=== PATIENT | female | born 1955 | race American Indian/Alaskan Native ===

== ENCOUNTER 2017-06-18 17:49 | Emergency (ER) | payer MEDICARE, MEDICAID ==
[2017-06-18 17:49] VITALS: BMI 31.2
[2017-06-18] MEDS ORDERED: Iohexol 240 (50 ml) PO STA (18:38)
[2017-06-18 18:43] VITALS: BP 143/85; PULSE 82; RESP 18; TEMP 99; O2SAT 98
[2017-06-18] MEDS ORDERED: Piperacill/Tazo 3.375gm in Dex 3.375 GM/50 ML BAG IVPB STA (19:23)
--- NOTE | 2017-06-18 19:37 | ED PDOC ---
HPI: General Adult Time Seen by Provider: 06/18/17 18:37 Chief Complaint (Nursing): Fever Chief Complaint (Provider): FEVER History Per: Patient (61 Y/O FEMALE H/O ESRD/ANEMIA RECENT AMA FROM [facility] YESTERDAY AFTER DIAGNOSIS OF MRSA AND VANCOMYCIN 2 DOSES. PATIENT NOTES SHE HAS HAD DIARRHEA AND FEVER AND FEELS UNWELL. WAS ATTEMPTING TO SEE HER PMD OUTPATIENT ON TUESDAY (DR. OLIVARES) BUT DID NOT FEEL WELL ENOUGH TO WAIT TO BE SEEN. PATIENT STATES SHE HAD INDWELLING DIALYSIS CATHETER REMOVED AT THAT TIME. STATES SHE HAD DIALYSIS CATHETER PLACED EMERGENCY DURING ADMISSION AT [facility] [place]. PATIENT WAS DIAGNOSIS WITH DIVERTICULITIS WITH ABSCESS. PATIENT STATES SHE HAD PERITONEAL DIALYSIS CATHETER REMOVED AT THAT TIME. PATIENT DOES NOT WANT TO BE CONSIDERED FOR DIALYSIS. 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/ H/O BOWEL PERFORATION - Family History Family History: States: Unknown Family Hx - Immunization History Hx Tetanus Toxoid Vaccination: No - Home Medications Home Medications: Ambulatory Orders Medication Instructions Recorded Allopurinol [Zyloprim] 100 mg PO DAILY 05/31/17 Calcium Carbonate 1 tab PO BID 05/31/17 Ferrous Sulfate [Slow Release Iron] 142 mg PO DAILY 05/31/17 Hydroxychloroquine Sulfate 200 mg PO DAILY 05/31/17 Metoprolol Succinate [Toprol XL] 50 mg PO BID 05/31/17 Sodium Bicarbonate Tab 650 mg PO QID 05/31/17 Tamsulosin [Flomax] 0.4 mg PO DAILY 05/31/17 Calcitriol 0.25 mcg PO DAILY 06/03/17 Vit B Cmplx 3/Folic AC/C/Biot 1 tab PO DAILY 06/03/17 [[facility] Tablet] - Allergies Allergies/Adverse Reactions: Allergies Allergy/AdvReac Type Severity Reaction Status Date / Time No Known Allergies Allergy Verified 10/28/17 17:56 Review of Systems ROS Statement: Except As Marked, All Systems Reviewed And Found Negative Physical Exam - Reviewed Nursing Documentation Reviewed: Yes Vital Signs Reviewed: Yes - Physical Exam Appears: Positive for: Well, Non-toxic, No Acute Distress Head Exam: Positive for: ATRAUMATIC, NORMAL INSPECTION, NORMOCEPHALIC Skin: Positive for: Warm. Negative for: Normal Color (RIGHT UPPER CHEST WALL WITH SMALL AMOUND OF PRULULENT DISCHARGE NOTED AT FORMER SHUNT SITE. NO SURROUNDING ERYTHEMA) Eye Exam: Positive for: EOMI, Normal appearance, PERRL ENT: Positive for: Normal ENT Inspection Neck: Positive for: Normal, Painless ROM Cardiovascular/Chest: Positive for: Regular Rate, Rhythm Respiratory: Positive for: CNT, Normal Breath Sounds Gastrointestinal/Abdominal: Positive for: Normal Exam, Bowel Sounds, Soft, Tenderness (TENDER ABDOMEN BILATERAL LOWER) Back: Positive for: Normal Inspection Extremity: Positive for: Normal ROM Neurologic/Psych: Positive for: Alert, Oriented - ECG O2 Sat by Pulse Oximetry: 98 - Progress ED Course And Treament: BC X 2 PENDING VENOUS BG EKG: SINUS TACHYCARDIA 103 BPM; NO ECTOPY NO ACUTE CHANGES VANCOMYCIN 1 GM IV X 1 DOSE ZOSYN 3.375 MG IV X 1 DOSE D/W DR. OLIVARES [phone]. D/W DAUGHTER [phone] WHO IS APN. GILL Disposition - Clinical Impression Clinical Impression: Fever in adult - Patient ED Disposition Is Patient to be Admitted: Transfer of Care - Disposition Disposition: Transfer of Care Disposition Time: 20:17 Condition: FAIR Forms: [employer] ([place]riac) Patient Signed Over To: Wilbert Ozuna Handoff Comments: PENDING LABS/ADMISSION.
[2017-06-18 20:03] LABS: VENOUS BLOOD GAS PCO2 31 mmHg (40-60); VENOUS BLOOD PH 7.49 (7.32-7.43)
[2017-06-18] MEDS ORDERED: Iohexol 240 (50 ml) ONE (20:37)
[2017-06-18 20:40] LABS: BASO # 0.1 K/uL (0.0-0.2); BASO % 0.6 % (0.0-2.0); EOS # 0.2 K/uL (0.0-0.7); EOS % 2.1 % (0.0-4.0); HEMATOCRIT 18.9 % (34.0-47.0); LYMPH # 4.2 K/uL (1.0-4.3); LYMPH % 40.9 % (20.0-40.0); MEAN CELL VOLUME 85.8 fl (81.0-99.0); MEAN CORPUSCULAR HEMOGLOBIN 25.5 pg (27.0-31.0); MEAN CORPUSCULAR HGB CONC 29.7 g/dL (33.0-37.0); MEAN PLATELET VOLUME 8.2 fl (7.2-11.7); MONO # 1.4 K/uL (0.0-0.8); MONO % 13.8 % (0.0-10.0); NEUT # 4.3 K/uL (1.8-7.0); NEUT % 42.6 % (50.0-75.0); RED CELL DISTRIBUTION WIDTH 20.2 % (11.5-14.5); WHITE BLOOD COUNT 10.2 K/uL (4.8-10.8)
[2017-06-18 20:42] LABS: ALB/GLOB RATIO 0.6 (1.0-2.1); BILIRUBIN,TOTAL 0.7 mg/dl (0.2-1.3); CALCIUM 7.2 mg/dL (8.4-10.2); POTASSIUM 3.7 MMOL/L (3.6-5.0); TOTAL PROTEIN 7.9 G/DL (6.3-8.2)
[2017-06-18 20:54] LABS: TROPONIN I 0.03 ng/mL (0.00-0.120)
--- NOTE | 2017-06-18 21:19 | ED PDOC ---
- Laboratory Results Result Diagrams: 06/18/17 20:10 06/18/17 20:10 - ECG O2 Sat by Pulse Oximetry: 98 - Progress ED Course And Treament: 1999 Signed out to me pending labs and CT. 2044 On re-evaluation, pt. in no distress. Refusing IV and antibiotics pending her blood work. 2100 Pt. given blood results and informed of increased lipase levels, severe anemia, ESRD. Informed that she requires admission for further testing, transfusion, and antibiotics. States she wants to sign out against medical advice and she will see Dr. Zaidi on Tuesday. I offered to call her daughter and Dr. Zaidi to inform them of patient's decision to sign out against medical advice but patient refused consent and requested that I do not contact them about her decision. Disposition - Clinical Impression Clinical Impression: Fever in adult, Severe anemia, MRSA (methicillin resistant staph aureus) culture positive, Left against medical advice, Abdominal pain, Diarrhea, End stage renal disease - POA Present On Arrival: None - Disposition Referrals: Vashti Kamara [Outside] Disposition: AGAINST MEDICAL ADVICE Disposition Time: 21:00 Condition: FAIR Additional Instructions: FOLLOW UP WITH DR. ZAIDI ON TUESDAY WITHOUT FAIL RETURN TO ED IMMEDIATELY FOR ANY CONCERNS OR QUESTIONS Instructions: Abdominal Pain (ED), Against Medical Advice (ED), Anemia (ED), End Stage Kidney Disease (ED) Forms: [email or web address] (Burkinan) Against Medical Advice - AMA Patient Left Against Medical Advice: The patient declines admission to the hospital and wishes to leave the Emergency Department. This action is against my medical advice. This decision was made with informed refusal. The patient was told that admission to the hospital is necessary. Explanation of the reasons why were discussed. The risks of leaving were explained to the patient and include, but are not limited to, worsening of known or currently unknown conditions, permanent disability and from undiagnosed or untreated conditions. The patient has the capacity to make this informed decision and understands my explanation of the current medical problem and risks of leaving. The patient voluntarily accepts these risks and signed an AMA form documenting our conversation. The patient was given the opportunity to ask questions and reconsider. The patient was encouraged to return to the Emergency Department at any time for further care.
--- NOTE | 2017-06-19 10:27 | RAD ---
HISTORY: Fever COMPARISON: No prior. FINDINGS: LUNGS: The lungs are well inflated and clear. PLEURA: No significant pleural effusion identified, no pneumothorax apparent. CARDIOVASCULAR: Normal. OSSEOUS STRUCTURES: No significant abnormalities. VISUALIZED UPPER ABDOMEN: Normal. OTHER FINDINGS: None. IMPRESSION: No active pulmonary disease.
--- NOTE | 2017-06-19 16:37 | CARD ---
APPROVED REPORT EKG Measurement Heart [id number] IN [id number] [id number] <Conclusion> Sinus tachycardia Otherwise normal ECG
== END 2017-06-18 21:11 | disposition left against medical advice (07) ==
LOC: H.ER 17:49
DX: N18.6 End stage renal disease (principal); R10.9 Unspecified abdominal pain; D64.9 Anemia, unspecified; B95.62 Methicillin resistant Staphylococcus aureus infection as the cause of diseases classified elsewhere